=== PATIENT | male | born 2000 | race Hispanic/Latino ===

== ENCOUNTER 2023-01-18 21:09 | Emergency (ER) | payer OTHER ==
[2023-01-18] MEDS ORDERED: diphenhydrAMINE 50 MG/ML VIAL ONE (21:26)
[2023-01-18] MEDS ORDERED: Famotidine/PF 20 mg/2ml Vial ONE (21:26)
[2023-01-18] MEDS ORDERED: methylPREDNISolone Sod Succ/PF 125 MG/2 ML VIAL ONE (21:26)
== END 2023-01-18 22:49 | disposition home or self-care (01) ==
LOC: CSHERS 21:09
DX: L50.9 Urticaria, unspecified (principal); T78.40XA Allergy, unspecified, initial encounter; F17.200 Nicotine dependence, unspecified, uncomplicated
CPT/HCPCS: 93005; 96374; 96375; J1200; J2930; S0028

== ENCOUNTER 2023-06-22 19:23 | Emergency (ER) | payer OTHER | END 2023-06-22 20:01 | disposition left against medical advice (07) | LOC: CSHERS 19:23 | DX: Z53.21 Procedure and treatment not carried out due to patient leaving prior to being seen by health care provider (principal) ==

== ENCOUNTER 2023-07-17 09:05 | Emergency (ER) | payer SELFPAY | END 2023-07-17 09:52 | disposition home or self-care (01) | LOC: CSHERS 09:05 | DX: H93.8X1 Other specified disorders of right ear (principal); Z55.6 Problems related to health literacy | CPT/HCPCS: 99283 ==

== ENCOUNTER 2023-11-01 15:22 | Emergency (ER) | payer SELFPAY ==
[2023-11-01] MEDS ORDERED: Lidocaine 2% Viscous 10 mL, Alum & Magn 30 mL SSW SCH (17:00)
== END 2023-11-01 17:51 | disposition home or self-care (01) ==
LOC: CSHERS 15:22
DX: K29.00 Acute gastritis without bleeding (principal)
CPT/HCPCS: 99283